=== PATIENT | male | born 1950 | race Caucasian/White ===

== ENCOUNTER 2018-03-09 14:37 | Emergency (ER) | payer MEDICARE, BC ==
[~2018-03-09] VITALS: Ht 185.4 cm; Wt 82.0 kg
[2018-03-09] MEDS ORDERED: ceFAZolin 1GM/D5W- ADD-VANTAGE 50 ML IV ONE (15:05)
[2018-03-09] MEDS ORDERED: TETanus/Pertussis (Acell)/Diphther VAC/PF (Tdap-Adult) 0.5ml syringe IM ONE (15:25)
[2018-03-09] MEDS ORDERED: BUPIVAcaine/PF 2.5 mg/ml (0.25%) 30ml vial IJ ONE (15:25)
[2018-03-09] MEDS ORDERED: BUPIVAcaine/PF 2.5mg/ml (0.25%) 10ml vial IJ ONE ×3 (15:30→16:05)
[2018-03-09 17:44] VITALS: BP 126/80
[2018-03-09] MEDS ORDERED: CEPH500C5 PO (18:19)
[2018-03-09] MEDS ORDERED: HYDR-4383 PO (18:19)
== END 2018-03-09 18:39 | disposition home or self-care (01) ==
LOC: ER 14:38 → EDBD 14:38 → ER 18:39
DX: S81.812A Laceration without foreign body, left lower leg, initial encounter (principal); Z79.2 Long term (current) use of antibiotics; Z79.899 Other long term (current) drug therapy; W26.8XXA Contact with other sharp object(s), not elsewhere classified, initial encounter; Y93.89 Activity, other specified; Y92.814 Boat as the place of occurrence of the external cause; Y99.8 Other external cause status
CPT/HCPCS: 12005; 90715; 96365; 99284; J0690; J3490